=== PATIENT | female | born 1990 | race Caucasian/White ===

== ENCOUNTER 2020-12-26 12:44 | Emergency (ER) | payer OTHER, SELFPAY ==
--- NOTE | ~2020-12-26 | CT_ITS ---
EXAMINATION: CT SOFT TISSUE NECK WITH CONTRAST CLINICAL INFORMATION: Evaluate right peritonsillar abscess. COMPARISON: There are no prior studies available for comparison. TECHNIQUE: Following the intravenous administration of 50 mL of Omnipaque 350 intravenous contrast, helical imaging was performed in the axial plane with generation of coronal and sagittal reformatted images. This CT examination was performed using dose optimization techniques as appropriate, variously including the following: *Automated exposure control *Adjustment of mA and/or kV according to patient size (this includes techniques or standardized protocols for targeted exams where dose is matched to indication/reason for exam; i.e. extremities or head) *Use of iterative reconstruction technique DLP: 469 mGy-cm FINDINGS: There is an area of irregular density in the right palatine tonsil which measures 1.7 x 1.4 cm, which may be consistent with a developing tonsillar abscess. There is fullness of the bilateral palatine tonsils, and there is mild distortion of the oropharyngeal airway on the right. There are multilevel moderately prominent cervical lymph nodes bilaterally. The largest is in the left level IIA/IIB region and measures 2 cm. The parotid glands are homogeneous in attenuation. The submandibular glands are normal. The laryngeal structures are normal. The parapharyngeal fat is preserved. There is good opacification of the cervical vascular structures. No extra mucosal soft tissue mass or fluid collection is seen. The left lobe of the thyroid gland is slightly asymmetrically more prominent toward the lower pole compared to the right, but no discrete nodule is demonstrated. The superior mediastinum is unremarkable. The lung apices are clear. There are retention cysts in the right maxillary sinus. The temporomandibular joints are normal. The patient is edentulous in the maxilla. There are no acute osseous findings. The cervical spine appears normal. The imaged portions of the brain parenchyma are unremarkable. CT/CT soft tissue neck w con IMPRESSION: 1. There is fullness of the bilateral palatine tonsils, and there appears to be an evolving abscess on the right. There is mild distortion of the airway on the right in this region. 2. There are mildly prominent cervical lymph nodes, the largest in the left level IIA/IIB region. 3. The lower pole of the left lobe of thyroid gland is slightly prominent, but no discrete nodule is demonstrated. This could be further evaluated with nonemergent thyroid ultrasound.
[2020-12-26 14:33] VITALS: BP 135/86; PULSE 82; RESP 18; TEMP 36.6; O2SAT 99; BMI 32.5
--- NOTE | 2020-12-26 14:51 | ED.URI ---
HPI - URI/Sore Throat General Chief Complaint: General Medical Stated Complaint: COVID+/abscess in throat? Time Seen by Provider: 12/26/20 14:24 Source: patient Mode of arrival: ambulatory Limitations: no limitations History of Present Illness MD elicited complaint: sore throat Pertinent past history: other (dx with COVID on Saturday, negative strep on Saturday has been on augmentin pain worsened since then) Onset (ago): day(s) (since this Saturday) Consistency: progressively worsening Severity: moderate Able to tolerate fluids by mouth: Yes Exacerbating factors: swallowing Relieving factors: nothing Context: sick contacts Associated symptoms: chills, voice changes and sore throat Treatments prior to arrival: ibuprofen and antibiotics (augmentin since saturday) Related Data Allergies Allergy/AdvReac Type Severity Reaction Status Date / Time acetaminophen [From Vicodin] Allergy Intermediate Nausea Verified 12/26/20 15:21 hydrocodone [From Vicodin] Allergy Intermediate Nausea Verified 12/26/20 15:21 latex [LATEX] Allergy Intermediate HIVES Verified 12/26/20 15:21 diphenhydramine AdvReac Intermediate Agitated Verified 12/26/20 15:21 [From Benadryl] metoclopramide [From Reglan] AdvReac Intermediate Anxiety Verified 12/26/20 15:21 Review of Systems Review of Systems: Constitutional : No Weight loss, No Fever, pos Chills, No Fatigue, No Malaise ENT/Mouth : pos sore throat, No Rhinorrhea Eyes: No Eye Pain, No Swelling, No Redness Cardiovascular : No Chest Pain, No SOB, No Dyspnea on Exertion, No Orthopnea, No Edema, No Palpitations Respiratory : No Cough, No Sputum, No Wheezing Gastrointestinal : No Nausea, No Vomiting, No Diarrhea, No Constipation, No abdominal Pain, No Hematochezia, No Melena Genitourinary : No Dysuria, No Urinary Frequency, No Hematuria, Musculoskeletal : No joint pain, No Myalgias, No Joint Swelling Skin : No Skin Lesions, No rash Neuro : No Weakness, No Numbness, No Dizziness, No Headache Psych : No Anxiety/Panic, No Depression Heme/Lymph: No Bruising, No Bleeding,pos Lymphadenopathy Endocrine : No Polyuria, No Polydipsia All other systems reviewed and are negative PMFSH Past Medical History Attestation statement: The following information was validated with the patient. Medical History Anxiety Diverticulosis Fibromyalgia GERD (gastroesophageal reflux disease) IBS (irritable bowel syndrome) Migraine PCOS (polycystic ovarian syndrome) Social History Social History (Updated 12/26/20 @ 15:10 by Shira Conrad DO) Alcohol intake: current Alcohol intake frequency: holidays/special occasions only Patient Tobacco Use Status: Current everyday Tobacco user Use of substances other than those prescribed or required for medical reasons: No Advance Directives: No Advance Directives Information Provided: No Physical Exam Vital Signs: Vital Signs: Last Vital Signs Temp 98 F 12/26/20 14:33 Pulse 82 12/26/20 14:33 Resp 18 12/26/20 14:33 BP 135/86 12/26/20 14:33 Pulse Ox 99 12/26/20 14:33 Body Mass Index 32.5 Appearance: Alert. Oriented X3. No acute distress. Eyes: Pupils equal, round and reactive to light. ENT: Pharynx mild generalized erythema, no mass seen on R tonsil but stones seen - uvula is midline, no sig swelling Neck: tender R anterior cervical LAD moderate in size CVS: Normal heart rate and rhythm. Pulses normal. Respiratory: No respiratory distress. Breath sounds normal. Abdomen: Soft and nontender. Skin: Skin warm and dry. Normal skin color. Normal skin turgor. Extremities: No lower extremity edema. No calf ttp Neuro: Oriented X 3. No motor deficit. No sensory deficit. 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 Dispo per results and findings. Lab Data Result diagrams: 12/26/20 15:15 12/26/20 15:15 Labs: Lab Results 12/26/20 12/26/20 12/26/20 Range/Units 15:15 15:15 15:15 WBC 4.9 (4.8-10.8) X10*3/uL RBC 4.42 (4.20-5.50) X10*6/uL Hgb 12.9 (12.0-16.0) g/dl Hct 38.7 (37-47) % MCV 87.6 (80-98) fL MCH 29.2 (27.0-33.0) pg MCHC 33.3 (31.0-35.0) g/dl RDW 12.4 (11.0-16.0) % Plt Count 171 (160-400) X10*3/uL MPV 11.6 (9.4-12.3) fL Immature Gran % (Auto) 0.2 (0.0-0.4) % Neut % (Auto) 71.5 (45-73) % Lymph % (Auto) 20.8 (20-40) % [place] % (Auto) 5.7 (2-11) % Eos % (Auto) 1.6 (0-4) % Baso % (Auto) 0.2 (0-2) % Lymph # (Auto) 1.0 L (1.2-4.9) X10*3/uL [place] # (Auto) 0.3 (0.1-1.2) X10*3/uL Eos # (Auto) 0.1 (0.0-0.4) X10*3/uL Baso # (Auto) 0.0 (0.0-0.2) X10*3/uL Abs Immat Gran (auto) 0.01 (0.00-0.03) X10*3/uL Absolute Neuts (auto) 3.5 (2.0-8.3) X10*3/uL Absolute Nucleated RBC 0.000 (0.0-0.012) X10*3/uL Nucleated RBC % (auto) 0.0 (0.0-0.2) /100WBC Sodium 141 (135-145) mmol/L Potassium 4.1 (3.3-5.1) mmol/L Chloride 111 H (96-108) mmol/L Carbon Dioxide 23 (22-29) mmol/L Anion Gap 11 L (12-20) BUN 10 (9-16) mg/dL Creatinine 0.65 (0.5-1.4) mg/dL Estim Creat Clear Calc 122.2 Estimated GFR > 60 Random Glucose 84 (60-115) mg/dL Lactic Acid 1.5 (0.5-2.0) mmol/L Calcium 8.6 (8.4-10.2) mg/dL S. pyogenes GrpA ALANNA (Negative) 12/26/20 Range/Units 15:15 WBC (4.8-10.8) X10*3/uL RBC (4.20-5.50) X10*6/uL Hgb (12.0-16.0) g/dl Hct (37-47) % MCV (80-98) fL MCH (27.0-33.0) pg MCHC (31.0-35.0) g/dl RDW (11.0-16.0) % Plt Count (160-400) X10*3/uL MPV (9.4-12.3) fL Immature Gran % (Auto) (0.0-0.4) % Neut % (Auto) (45-73) % Lymph % (Auto) (20-40) % [place] % (Auto) (2-11) % Eos % (Auto) (0-4) % Baso % (Auto) (0-2) % Lymph # (Auto) (1.2-4.9) X10*3/uL [place] # (Auto) (0.1-1.2) X10*3/uL Eos # (Auto) (0.0-0.4) X10*3/uL Baso # (Auto) (0.0-0.2) X10*3/uL Abs Immat Gran (auto) (0.00-0.03) X10*3/uL Absolute Neuts (auto) (2.0-8.3) X10*3/uL Absolute Nucleated RBC (0.0-0.012) X10*3/uL Nucleated RBC % (auto) (0.0-0.2) /100WBC Sodium (135-145) mmol/L Potassium (3.3-5.1) mmol/L Chloride (96-108) mmol/L Carbon Dioxide (22-29) mmol/L Anion Gap (12-20) BUN (9-16) mg/dL Creatinine (0.5-1.4) mg/dL Estim Creat Clear Calc Estimated GFR Random Glucose (60-115) mg/dL Lactic Acid (0.5-2.0) mmol/L Calcium (8.4-10.2) mg/dL S. pyogenes GrpA ALANNA Positive A (Negative) Discharge Plan Discharge Clinical Impression: Acute streptococcal pharyngitis Instructions: Pharyngitis (ED), Strep Throat (ED)
[2020-12-26 15:28] LABS: MANUAL DIFF FLAG NO
[2020-12-26] MEDS: cefTRIAXone sodium 1 GM in 0.9 % Sodium Chloride 50 ML IV (15:31)
[2020-12-26] MEDS: dexAMETHasone sod phosphate 4 MG/ML VIAL 6 MG IVPUSH (15:31)
[2020-12-26] MEDS: ondansetron HCL 4 MG/2 ML VIAL IVPUSH (15:31)
[2020-12-26] MEDS: Morphine Sulfate 4 MG/ML CARTRIDGE IVPUSH (15:32)
[2020-12-26] MEDS: 0.9 % Sodium Chloride 1,000 ML 999 ML IVCONT (15:32)
[2020-12-26 15:35] LABS: Basophils Percent Auto 0.2 % (0-2); Eosinophils Absolute Auto 0.1 X10*3/uL (0.0-0.4); Eosinophils Percent Auto 1.6 % (0-4); Hematocrit 38.7 % (37-47); Hemoglobin 12.9 g/dl (12.0-16.0); Imm Gran Abs Auto 0.01 X10*3/uL (0.00-0.03); Imm Gran Pct Auto 0.2 % (0.0-0.4); Lymphocytes Percent Auto 20.8 % (20-40); Mean Corpuscular HGB Conc 33.3 g/dl (31.0-35.0); Mean Corpuscular Hemoglobin 29.2 pg (27.0-33.0); Mean Corpuscular Volume 87.6 fL (80-98); Mean Platelet Volume 11.6 fL (9.4-12.3); Monocytes Absolute Auto 0.3 X10*3/uL (0.1-1.2); Monocytes Percent Auto 5.7 % (2-11); Neutrophils Absolute Auto 3.5 X10*3/uL (2.0-8.3); Neutrophils Percent Auto 71.5 % (45-73); Platelet Count 171 X10*3/uL (160-400); Red Blood Count 4.42 X10*6/uL (4.20-5.50); Red Cell Distribution Width 12.4 % (11.0-16.0); White Blood Count 4.9 X10*3/uL (4.8-10.8)
--- NOTE | 2020-12-26 15:36 | PC.NURSE ---
iv inserted, labs drawn, pt medicated per order, will continue to monitor
[2020-12-26 15:39] LABS: IDNOW Serial# 9DD0AD1C; Strep A Nucleic Acid Positive (Negative)
[2020-12-26 15:41] LABS: Lactic Acid 1.5 mmol/L (0.5-2.0)
[2020-12-26 15:42] LABS: Anion Gap 11 (12-20); Blood Urea Nitrogen 10 mg/dL (9-16); Calcium 8.6 mg/dL (8.4-10.2); Carbon Dioxide 23 mmol/L (22-29); Chloride 111 mmol/L (96-108); Creatinine Clr Calc Pharmacy 122.2; Estimated Glomerular Filt Rate > 60; Glucose Random 84 mg/dL (60-115); Potassium 4.1 mmol/L (3.3-5.1); Sodium 141 mmol/L (135-145)
[2020-12-26 17:15] VITALS: BP 124/86; PULSE 63; RESP 18; TEMP 36.8; O2SAT 99
--- NOTE | 2020-12-26 17:17 | PC.NURSE ---
patient a&ox3, vss, urine obtained, pt c/o 09/01 throat pain, will continue to monitor.
[2020-12-26 17:28] LABS: Appearance Urine CLEAR; Color Urine YELLOW; Glucose Urine UA NEG (NEG); Leukocyte Esterase Urine 1+ (NEG); Nitrite Urine NEG (NEG); UACC Culture Trigger YES; Urine Blood NEG (NEG); Urine Ketones NEG (NEG); Urine Protein NEG (NEG-TRACE)
[2020-12-26 17:31] LABS: UPreg QC Valid YES; Urine Pregnancy NEGATIVE (NEGATIVE)
[2020-12-26 17:46] LABS: Bacteria Urine TRACE /LPF; RBC Urine 0-2 /HPF (0); Squamous Epithelial Cell Urine TRACE /LPF
[2020-12-26] MEDS: iohexoL 350 MG/ML 100 ML INFUS..BTL IV (17:48)
[2020-12-26] MEDS: Lidocaine HCl Viscous 2 % 15 ML SOLUTION MUCOUS MEM (18:04)
--- NOTE | 2020-12-26 18:04 | PC.NURSE ---
patient medicated for pain
[2020-12-26 19:31] VITALS: BP 134/89; PULSE 83; RESP 16; O2SAT 98
--- NOTE | 2020-12-26 19:40 | PC.NURSE ---
pt requested medication for pain, MLP ordered 650 Tylenol when this nurse walked in to administer medication pt decided she wanted to hold off on Tylenol in case she ends up going home tonight and wants to take an OTC/Tylenol-containing cold medicine at home EMBEDDER (Rochelle Cormier, EMBEDDER) at bedside and aware
== END 2020-12-26 20:12 | disposition home or self-care (01) ==
PROVIDERS: Emergency Provider Emergency Medicine
DX: J02.0 Streptococcal pharyngitis (principal); M54.2 Cervicalgia; Z20.822 Contact with and (suspected) exposure to COVID-19; Z79.899 Other long term (current) drug therapy; F17.200 Nicotine dependence, unspecified, uncomplicated; Z71.6 Tobacco abuse counseling
CPT/HCPCS: 36415; 70491; 80048; 81001; 81025; 83605; 85025; 87040; 87086; 87651; 96361; 96374; 96375; 99284; J0696; J1100; J2270; J2405; Q9967

== ENCOUNTER 2022-04-17 08:30 | Emergency (ER) | payer OTHER, SELFPAY ==
--- NOTE | ~2022-04-17 | XR_ITS ---
EXAMINATION: XR WRIST, LEFT CLINICAL INFORMATION: Status post fall COMPARISON: None TECHNIQUE: 4 views of the left wrist FINDINGS: Mildly displaced transverse oriented fracture involving the distal radial metadiaphysis. Joint spaces and alignment are otherwise maintained. Soft tissues are unremarkable. XR/XR wrist LT w scaphoid IMPRESSION: Mildly displaced transverse oriented fracture involving the distal radial metadiaphysis.
[2022-04-17 08:36] VITALS: BMI 31.9
[2022-04-17 08:37] VITALS: BP 138/96; PULSE 103; RESP 16; TEMP 36.8; O2SAT 99
--- NOTE | 2022-04-17 08:41 | ED.EXTPRO ---
HPI - Extremity Problem General Chief complaint: Extremity Injury, Upper Stated complaint: L wrist inj Time Seen by Provider: 04/17/22 08:33 Source: patient Mode of arrival: ambulatory Limitations: no limitations History of Present Illness HPI Narrative: Patient is a 31-year-old female who presents emergency department for evaluation of traumatic left wrist pain. She states prior to arrival she slipped on ice while trying to catch her son from falling, she subsequently fell onto her outstretched hand. Pain is localized to the radial aspect, with mild localized swelling. Pain is radiating into the distal forearm. Denies any prior injury or surgery to this wrist. Related Data Previous Rx's Medication Instructions Recorded clindamycin HCl 300 mg capsule 300 mg PO Q8H 10 days #30 caps 12/26/20 ibuprofen 600 mg tablet 600 mg PO Q6H PRN pain #90 tabs 12/26/20 oxycodone 5 mg tablet 5 mg PO Q8H PRN pain #10 tabs 12/26/20 oxycodone 5 mg tablet 5 mg PO Q6H PRN pain #14 tabs 04/17/22 Allergies Allergy/AdvReac Type Severity Reaction Status Date / Time acetaminophen [From Vicodin] Allergy Intermediate Nausea Verified 12/26/20 15:21 hydrocodone [From Vicodin] Allergy Intermediate Nausea Verified 12/26/20 15:21 latex [LATEX] Allergy Intermediate HIVES Verified 12/26/20 15:21 diphenhydramine AdvReac Intermediate Agitated Verified 12/26/20 15:21 [From Benadryl] metoclopramide [From Reglan] AdvReac Intermediate Anxiety Verified 12/26/20 15:21 Review of Systems Review of Systems: Musculoskeletal: Positive wrist pain as noted in HPI Yes all other systems are reviewed and are negative [facility] Past Medical History Attestation statement: The following information was validated with the patient. Source: old records reviewed Medical History Anxiety Diverticulosis Fibromyalgia GERD (gastroesophageal reflux disease) IBS (irritable bowel syndrome) Migraine PCOS (polycystic ovarian syndrome) Social History Social History (Updated 12/26/20 @ 15:10 by Lashon Conrad DO) Alcohol intake: current Alcohol intake frequency: holidays/special occasions only Patient Tobacco Use Status: Current everyday Tobacco user Advance Directives: No Advance Directives Information Provided: Yes Physical Exam Vital Signs: Vital Signs: Last Vital Signs Temp 98.2 F 04/17/22 08:37 Pulse 103 H 04/17/22 08:37 Resp 16 04/17/22 08:37 BP 138/96 H 04/17/22 08:37 Pulse Ox 99 04/17/22 08:37 O2 Del Method 04/17/22 08:37 BMI result Body Mass Index 31.9 Appearance: Alert.?Oriented to person, place and time. No acute distress.?Normal affect. Eyes: Pupils equal, round and reactive to light.? ENT: Pharynx normal.?? Neck: Normal inspection.? Neck supple.?? CVS: Heart sounds normal. Normal heart rate and rhythm.? Pulses normal.?? Respiratory: No respiratory distress.? Lung sounds clear to auscultation bilaterally?? Abdomen: Soft and non-tender. Skin: Skin warm and dry.? Normal skin color.? Extremities: No lower extremity edema.? Left elbow and digits with full range of motion. Left wrist with localized swelling, point tenderness over radial aspect of wrist and snuffbox tenderness. 2+ radial pulse bilaterally. Neuro: Moves all extremities spontaneously. Sensation intact bilaterally. Ambulates with normal steady gait. Course Reevaluation(s) Reevaluation #1: XR imaging revealing mildly displaced transverse fracture of the distal radius. Discussed these findings with patient. Patient placed in a sugar-tong splint, remained neurovascularly intact distally after placement. Advised rest, ice, elevation, acetaminophen/ibuprofen for pain, and prescription for oxycodone sent to patient's pharmacy. Advised outpatient follow-up with Orthopedics, provided with contact information. Discussed worrisome signs and symptoms of warrant re-evaluation in the emergency department. All questions answered. Patient stable for discharge. Time: 10:04 Medications Administered Discontinued Medications Generic Name Dose Route Start Last Admin Trade Name Freq PRN Reason Stop Dose Admin Acetaminophen 975 mg 04/17/22 08:48 04/17/22 08:53 Acetaminophen 325 Mg Tablet PO 04/17/22 08:49 975 mg ONCE ONE Administration Medical Decision Making Medical Decision Making [facility] Narrative: Patient is a 31-year-old female who presents to the emergency department for evaluation of traumatic left wrist pain after mechanical fall. Extremities neurovascularly intact distally, proximal joint and distal phalanges are without impaired range of motion. Will obtain XR to evaluate for fracture, dislocation verses sprain. Acetaminophen for pain. No head strike or loss of consciousness, no focal neurological deficits. Differential Diagnosis Differential Diagnoses: The differential diagnosis associated with the presentation includes Independent Interpretation I performed an independent interpretation of an: Plain X-Ray (Have personally interpreted XR imaging of the left wrist and agree with radiologist impression.) Radiology Impression Discussion of test interpretation with radiology: I have reviewed the radiologist's reading. Radiologist Impression: XR/XR wrist LT w scaphoid IMPRESSION: Mildly displaced transverse oriented fracture involving the distal radial metadiaphysis. ? Prescription Management I considered prescription management with: Pain Medication Discharge Plan Discharge Clinical Impression: Distal radius fracture, left Patient Disposition: Home, Self-Care Instructions: Arm Fracture in Adults (ED), Wrist Fracture in Adults (ED) Additional Instructions: Splint will need to be in place until evaluated by Orthopedics. The splint cannot get wet. Apply ice for 10-15 minutes 4-6 times daily, elevate the leg above the level of the chest on pillows. You can take ibuprofen 200 mg, 3 tablets (600mg) every 6-8 hours as needed for pain, in addition to Tylenol 500 mg, 2 tablets (1,000mg) every 4-6 hours as needed for pain, but not to exceed 3 doses daily (3,000mg).? You have also been given a prescription for oxycodone to use as needed for severe pain unrelieved by acetaminophen/ibuprofen. This is a narcotic medication, it may make you drowsy, it can be addictive. You should not drive, drink alcohol, work, or operate machinery while taking this medication. Contact the orthopedic office to arrange for outpatient follow-up. Return back to emergency department any new or worsening symptoms or concerns. Prescriptions: New oxycodone 5 mg tablet 5 mg PO Q6H PRN (Reason: pain) Qty: 14 0RF Rx Instructions: Partial Fill upon patient request. No Action clindamycin HCl 300 mg capsule 300 mg PO Q8H 10 Days Qty: 30 0RF oxycodone 5 mg tablet 5 mg PO Q8H PRN (Reason: pain) Qty: 10 0RF Rx Instructions: Tonsillar abscess ibuprofen 600 mg tablet 600 mg PO Q6H PRN (Reason: pain) Qty: 90 0RF Referrals: Berenice Zambrano PA-C [Physician [employer] Machine Repairer] - Stand Alone Forms: Work/School Release Interventions: ED Discharge Assessment Last Done: 04/17/22 10:21 Discharge Date/Time: 04/17/22 10:39
--- NOTE | 2022-04-17 08:42 | PC.NURSE ---
31 y/o F pw pain to R wrist after slipping and falling on ice. pt is aox3, VSS. no other complaints. plan for xray
[2022-04-17] MEDS: Acetaminophen 325 MG TABLET 975 MG PO (08:53)
== END 2022-04-17 10:39 | disposition home or self-care (01) ==
PROVIDERS: Emergency Provider Emergency Medicine
DX: S52.502A Unspecified fracture of the lower end of left radius, initial encounter for closed fracture (principal); W00.0XXA Fall on same level due to ice and snow, initial encounter; Y93.9 Activity, unspecified; Y92.9 Unspecified place or not applicable; Y99.9 Unspecified external cause status; Z79.899 Other long term (current) drug therapy; F17.200 Nicotine dependence, unspecified, uncomplicated; Z71.6 Tobacco abuse counseling
CPT/HCPCS: 29105; 73110; 99284

== ENCOUNTER 2022-04-20 16:32 | Outpatient (REF) | payer OTHER, SELFPAY ==
--- NOTE | ~2022-04-20 | XR_ITS ---
EXAMINATION: XR WRIST, LEFT CLINICAL INFORMATION: Pain COMPARISON: 04/17/2022 TECHNIQUE: PA, lateral, and oblique views of the left wrist. FINDINGS: Redemonstration of unhealed distal radial fracture. No significant displacement, there is some bone remodeling. Intercarpal and carpometacarpal joints are intact. XR/XR wrist LT min 3V IMPRESSION: * Unhealed stable distal radial fracture. * There is some bone remodeling.
== END 2022-04-20 16:33 | disposition home or self-care (01) ==
LOC: HO.HOSX 16:32
PROVIDERS: Visit Provider Physician Assistant
DX: S52.502A Unspecified fracture of the lower end of left radius, initial encounter for closed fracture (principal)
CPT/HCPCS: 73110; 99202

== ENCOUNTER 2022-04-24 08:09 | Outpatient (REF) | payer SELFPAY ==
--- NOTE | ~2022-04-24 | XR_ITS ---
EXAMINATION: XR WRIST, LEFT CLINICAL INFORMATION: Pain. COMPARISON: 04/20/2022 and 04/17/2022. TECHNIQUE: 4 views of the left wrist. FINDINGS: There is no change in alignment of the distal left radial fracture which is not intra-articular at the radiocarpal joint and which is at neutral to slight volar angulation of the radiocarpal joint. There is some sclerosis about the fracture site but without callus formation appreciated. XR/XR wrist LT w scaphoid IMPRESSION: Stable alignment of healing distal left radial fracture.
== END 2022-04-24 08:10 | disposition home or self-care (01) ==
LOC: HO.HOSX 08:09
PROVIDERS: Visit Provider Physician Assistant
DX: S52.502A Unspecified fracture of the lower end of left radius, initial encounter for closed fracture (principal)
CPT/HCPCS: 29085; 73110; 99212

== ENCOUNTER 2022-05-01 08:38 | Emergency (ER) | payer OTHER, SELFPAY ==
[2022-05-01 08:41] VITALS: BP 139/85; PULSE 100; RESP 18; TEMP 35.8; O2SAT 100; BMI 30.2
--- NOTE | 2022-05-01 08:53 | ED.GENADULT ---
HPI - General Adult General Chief complaint: General Medical Stated complaint: migraine Time Seen by Provider: 05/01/22 08:47 Source: patient Mode of arrival: ambulatory Limitations: no limitations History of Present Illness HPI narrative: Patient is a 32 year old assigned female at with a history of migraine and a broken left wrist presenting to the emergency department today with nausea and a migraine. Patient states that this feels like her usual migraines however, she ran out of her migraine medication and her GERD medication. Patient denies any dizziness, lightheadedness, abdominal pain, vomiting, fever, chills, blurry vision, double vision, loss of vision, chest pain, difficulty breathing, shortness of breath, back pain, night sweats, pain with urination, increased urinary frequency, increased urinary urgency, blood in her urine or stool, syncope or a near syncopal episode, recent trauma or falls, bowel incontinence, bladder incontinence, bowel retention, bladder retention, or any other complaints at this time. Onset (ago): day(s) Radiation: non-radiation Severity: mild Severity scale (1-10): 2 Quality: dull Pain Consistency: constant Relieving factors: none Exacerbating factors: none Associated symptoms: nausea/vomiting Treatments prior to arrival: none Related Data Previous Rx's Medication Instructions Recorded clindamycin HCl 300 mg capsule 300 mg PO Q8H 10 days #30 caps 12/26/20 oxycodone 5 mg tablet 5 mg PO Q8H PRN pain #10 tabs 12/26/20 acetaminophen 500 mg tablet 500 mg PO Q4-6H PRN fever or pain 04/24/22 (Tylenol Extra Strength) 30 days #168 tabs oxycodone 5 mg tablet 5 mg PO Q12H PRN pain 2 days #4 04/24/22 tabs pantoprazole 40 mg tablet,delayed 40 mg PO DAILY #30 tabs 05/01/22 release (Protonix) rizatriptan 5 mg disintegrating See Rx Instructions PO .COMPLEX 05/01/22 tablet #30 tabs Allergies Allergy/AdvReac Type Severity Reaction Status Date / Time hydrocodone [From Vicodin] Allergy Intermediate Nausea Verified 04/24/22 10:37 latex [LATEX] Allergy Intermediate HIVES Verified 04/24/22 10:37 diphenhydramine AdvReac Intermediate Agitated Verified 04/24/22 10:37 [From Benadryl] metoclopramide [From Reglan] AdvReac Intermediate Anxiety Verified 04/24/22 10:37 Review of Systems Constitutional: Constitutional: Reports no additional constitutional complaints, Denies chills, Denies fever(s), Reports headache(s) and Denies night sweats Eyes: Eyes: Reports no additional eye complaints, Denies blurry vision, Denies change in vision, Denies diplopia, Denies eye discharge, Denies loss of vision and Denies eye pain ENT: Denies dizziness and Reports headache(s) Cardiovascular: Cardiovascular: Reports no additional cardiovascular complaints, Denies chest pain, Denies lightheadedness, Denies Loss of Consciousness and Denies dyspnea Respiratory: Respiratory: Reports no additional respiratory complaints and Denies dyspnea Gastrointestinal: Gastrointestinal: Reports no additional gastrointestinal complaints, Denies abdominal pain, Denies melena, Denies hematochezia, Denies change in bowel habits, Denies change in stool character and Reports nausea Genitourinary: Genitourinary: Denies hematuria, Denies urinary frequency, Denies dysuria, Denies urinary incontinence, Denies urinary hesitancy and Denies urinary urgency Musculoskeletal: Musculoskeletal: Reports no additional musculoskeletal complaints, Denies numbness and Denies tingling Neurologic: Denies dizziness, Reports headache(s), Denies loss of vision, Denies numbness and Denies tingling Psychiatric: Psychiatric: Reports no additional psychiatric complaints Endocrine: Endocrine: Reports no additional endocrine complaints Hematologic/Lymphatic: Hematologic/Lymphatic: Reports no additional hematologic/lymphatic complaints Allergic/Immunologic: Allergic/Immunologic: Reports no additional allergic/immunologic complaints PMFSH Past Medical History Attestation statement: The following information was validated with the patient. Source: old records reviewed and nursing notes reviewed Medical History Anxiety Diverticulosis Fibromyalgia GERD (gastroesophageal reflux disease) IBS (irritable bowel syndrome) Migraine PCOS (polycystic ovarian syndrome) Social History Social History Alcohol intake: current Alcohol intake frequency: holidays/special occasions only Patient Tobacco Use Status: Current everyday Tobacco user Advance Directives: No Patient : No Physical Exam ED Vital Signs: Vital Signs - 24 hr 05/01/22 08:41 Temperature 96.4 F L Pulse Rate 100 Respiratory Rate 18 Blood Pressure 139/85 Pulse Oximetry 100 Oxygen Delivery Method Room Air BMI result Body Mass Index 30.2 Const General: cooperative, no acute distress, alert and awake Nutritional Appearance: well nourished Orientation/consciousness: patient oriented x3 Limitations: no limitations HENMT Head: Yes normal to inspection and Yes atraumatic Ears: hearing grossly normal bilaterally and external ears normal General nose exam: Normal external nose present, no nasal discharge noted and no epistaxis Face and sinus: Yes normal facial exam, No abrasion and No laceration Mouth: Normal oral and palatal mucosa present, no drooling and no muffled voice Eyes General: appearance normal, both eyes and all related structures Periorbital: periorbital findings normal Eyelids: Yes eyelids normal Conjunctivae: conjunctivae normal Pupils: Equal, round and reactive pupils present EOM: EOMs intact bilaterally Neck Neck: Yes normal visual inspection, Yes full ROM and Yes no lymphadenopathy Chest Chest palpation & inspection: normal inspection of the chest Resp Effort & Inspection: normal respiratory effort and able to speak in complete sentences Auscultation: clear to auscultation bilaterally Cardio Rate: regular rate Rhythm: regular rhythm GI Inspection: Yes normal to inspection Palpation (GI): Soft to palpation, not firm, nontender, no guarding and not rigid Neuro General: patient oriented x3 and moves all extremities Cranial nerves: Yes Equal, round and reactive pupils present Cognition (Neuro): normal cognition Motor exam (neuro): 5/5 motor strength present throughout Sensory Exam: Normal double simultaneous stimulation for sensation Coordination: [id number] test normal Extrem General: Yes normal to inspection, Yes full ROM and Yes capillary refill normal Psych Appearance: grossly normal Mental Status: mental status grossly normal Affect: normal affect Attitude: cooperative Thought process: Normal thought process present Thought content: Normal thought content present Insight: Good insight present (Psych) Medications Administered Discontinued Medications Generic Name Dose Route Start Last Admin Trade Name Freq PRN Reason Stop Dose Admin Sodium Chloride 1,000 mls @ 999 mls/hr 05/01/22 09:30 05/01/22 09:43 Ns IV 05/01/22 10:30 999 mls/hr .Q1H1M MARCUS Administration Ondansetron HCl 4 mg 05/01/22 09:16 05/01/22 09:43 Ondansetron Hcl 4 Mg/2 Ml Vial IVPUSH 05/01/22 09:17 4 mg ONCE ONE Administration Pantoprazole Sodium 40 mg 05/01/22 09:16 05/01/22 09:43 Pantoprazole Sodium 40 Mg/10 Ml Vial IVPUSH 05/01/22 09:17 40 mg ONCE ONE Administration Sumatriptan Succinate 25 mg 05/01/22 09:16 05/01/22 10:08 Sumatriptan Succinate 25 Mg Tablet PO 05/01/22 09:17 25 mg ONCE ONE Administration Medical Decision Making Medical Decision Making [facility] Narrative: Patient is a 32 year old assigned female at with a history of a broken left wrist and migraines presenting to the emergency department today with a migraine and nausea. Patient's physical exam was unremarkable. Patient's blood work was unremarkable. I explained my physical exam findings as well as all test results to the patient. I answered all questions asked by the patient. Patient received PO Imitrex, IV fluids, and IV protonix which she stated helped her symptoms significantly. I stressed the importance of the patient taking her medication as prescribed. I stressed the importance of the patient following up with her primary care provider and a neurologist. I stressed the importance of the patient returning to the emergency department immediately if her symptoms were to worsen or if she were to develop any dizziness, shortness of breath, difficulty breathing, chest pain, blurry vision, loss of vision, nausea, vomiting, abdominal pain, fever, chills, back pain, or any other complaints. Patient verbalized agreement and understanding with this treatment plan and discharge. Differential Diagnosis Differential Diagnoses: The differential diagnosis associated with the presentation includes migraine, nausea Lab Data [facility] Lab Attestation statement: I reviewed the patient's lab results. 05/01/22 09:41 05/01/22 09:41 Labs: Lab Results 05/01/22 05/01/22 Range/Units 09:41 09:41 WBC 5.1 (4.8-10.8) X10*3/uL RBC 4.51 (4.20-5.50) X10*6/uL Hgb 12.9 (12.0-16.0) g/dl Hct 38.9 (37.0-47.0) % MCV 86.3 (80.0-98.0) fL MCH 28.6 (27.0-33.0) pg MCHC 33.2 (31.0-35.0) g/dl RDW 12.8 (11.0-16.0) % Plt Count 185 (160-400) X10*3/uL MPV 10.9 (9.4-12.3) fL Immature Gran % (Auto) 0.2 (0.0-0.4) % Neut % (Auto) 71.7 (45-73) % Lymph % (Auto) 17.2 L (20-40) % [place] % (Auto) 6.7 (2-11) % Eos % (Auto) 3.4 (0-4) % Baso % (Auto) 0.8 (0-2) % Lymph # (Auto) 0.9 L (1.2-4.9) X10*3/uL [place] # (Auto) 0.3 (0.1-1.2) X10*3/uL Eos # (Auto) 0.2 (0.0-0.4) X10*3/uL Baso # (Auto) 0.0 (0.0-0.2) X10*3/uL Abs Immat Gran (auto) 0.01 (0.00-0.03) X10*3/uL Absolute Neuts (auto) 3.6 (2.0-8.3) x10*3/uL Absolute Nucleated RBC 0.000 (0.0-0.012) X10*3/uL Nucleated RBC % (auto) 0.0 (0.0-0.2) /100WBC Sodium 138 (135-145) mmol/L Potassium 3.9 (3.3-5.1) mmol/L Chloride 108 (96-108) mmol/L Carbon Dioxide 18 L (22-29) mmol/L Anion Gap 16 (12-20) BUN 12 (9-16) mg/dL Creatinine 0.65 (0.5-1.4) mg/dL Estim Creat Clear Calc 115.4 Estimated GFR > 60 Random Glucose 89 (60-115) mg/dL Calcium 9.2 D (8.4-10.2) mg/dL Magnesium 1.7 (1.6-2.6) mg/dL Total Bilirubin 1.0 (0.0-1.0) mg/dL AST 15 (5-31) U/L ALT 17 (0-31) U/L Alkaline Phosphatase 57 (39-117) U/L Total Protein 6.8 (6.5-8.0) g/dL Albumin 4.0 (3.5-5.0) g/dL Discharge Plan Discharge Clinical Impression: Migraine Patient Disposition: Home, Self-Care Instructions: Migraine Headache (ED) Additional Instructions: Follow up with a primary care provider and a neurologist. Return to the emergency department immediately if your symptoms worsen or if you develop any dizziness, shortness of breath, difficulty breathing, chest pain, blurry vision, loss of vision, nausea, vomiting, abdominal pain, fever, chills, back pain, or any other complaints. Prescriptions: New pantoprazole [Protonix] 40 mg tablet,delayed release (DR/EC) 40 mg PO DAILY Qty: 30 0RF rizatriptan 5 mg tablet,disintegrating See Rx Instructions .ROUTE .COMPLEX Qty: 30 0RF Rx Instructions: take 1 tablet at onset of headache; if no relief, may repeat 1 tablet after at least 2 hrs No Action clindamycin HCl 300 mg capsule 300 mg PO Q8H 10 Days Qty: 30 0RF oxycodone 5 mg tablet 5 mg PO Q8H PRN (Reason: pain) Qty: 10 0RF Rx Instructions: Tonsillar abscess oxycodone 5 mg tablet 5 mg PO Q12H PRN (Reason: pain) 2 Days Qty: 4 0RF Rx Instructions: Partial Fill upon patient request. acetaminophen [Tylenol Extra Strength] 500 mg tablet 500 mg PO Q4-6H PRN (Reason: fever or pain) 30 Days Qty: 168 0RF Referrals: [facility] [place] Family Medicine [Provider Group] (Call to establish and follow up with a primary care provider.) [facility] [place] Primary Care, [place] [Provider Group] (Call to establish and follow up with a primary care provider.) [facility] [place] [facility] [Provider Group] (Call to establish and follow up with a primary care provider.) [facility] Neuro/Sleep [Provider Group] (Call to establish and follow up with a neurologist. ) Stand Alone Forms: Work/School Release Interventions: ED Discharge Assessment Last Done: 05/01/22 10:47 Discharge Date/Time: 05/01/22 10:47 Print Language: Monegasque
[2022-05-01] MEDS: ondansetron HCL 4 MG/2 ML VIAL IVPUSH (09:43)
[2022-05-01] MEDS: 0.9 % Sodium Chloride 1,000 ML 999 ML IV (09:43)
[2022-05-01] MEDS: Pantoprazole Sodium 40 MG/10 ML VIAL IVPUSH (09:43)
[2022-05-01 10:01] LABS: MANUAL DIFF FLAG NO
[2022-05-01 10:07] LABS: Basophils Percent Auto 0.8 % (0-2); Eosinophils Absolute Auto 0.2 X10*3/uL (0.0-0.4); Eosinophils Percent Auto 3.4 % (0-4); Hematocrit 38.9 % (37.0-47.0); Hemoglobin 12.9 g/dl (12.0-16.0); Imm Gran Abs Auto 0.01 X10*3/uL (0.00-0.03); Imm Gran Pct Auto 0.2 % (0.0-0.4); Lymphocytes Absolute Auto 0.9 X10*3/uL (1.2-4.9); Lymphocytes Percent Auto 17.2 % (20-40); Mean Corpuscular HGB Conc 33.2 g/dl (31.0-35.0); Mean Corpuscular Hemoglobin 28.6 pg (27.0-33.0); Mean Corpuscular Volume 86.3 fL (80.0-98.0); Mean Platelet Volume 10.9 fL (9.4-12.3); Monocytes Absolute Auto 0.3 X10*3/uL (0.1-1.2); Monocytes Percent Auto 6.7 % (2-11); Neutrophils Absolute Auto 3.6 x10*3/uL (2.0-8.3); Neutrophils Percent Auto 71.7 % (45-73); Platelet Count 185 X10*3/uL (160-400); Red Blood Count 4.51 X10*6/uL (4.20-5.50); Red Cell Distribution Width 12.8 % (11.0-16.0); White Blood Count 5.1 X10*3/uL (4.8-10.8)
[2022-05-01] MEDS: SUMAtriptan succinate 25 MG TABLET PO (10:08)
[2022-05-01 10:23] LABS: Alanine Aminotransferase 17 U/L (0-31); Alkaline Phosphatase 57 U/L (39-117); Anion Gap 16 (12-20); Aspartate Amino Transferase 15 U/L (5-31); Blood Urea Nitrogen 12 mg/dL (9-16); Calcium 9.2 mg/dL (8.4-10.2); Carbon Dioxide 18 mmol/L (22-29); Chloride 108 mmol/L (96-108); Creatinine Clr Calc Pharmacy 115.4; Estimated Glomerular Filt Rate > 60; Glucose Random 89 mg/dL (60-115); Magnesium 1.7 mg/dL (1.6-2.6); Potassium 3.9 mmol/L (3.3-5.1); Sodium 138 mmol/L (135-145); Total Protein 6.8 g/dL (6.5-8.0)
== END 2022-05-01 10:47 | disposition home or self-care (01) ==
PROVIDERS: Physician Assistant Medical; Emergency Provider Emergency Medicine
DX: G43.909 Migraine, unspecified, not intractable, without status migrainosus (principal); Z79.899 Other long term (current) drug therapy; F17.200 Nicotine dependence, unspecified, uncomplicated; Z71.6 Tobacco abuse counseling
CPT/HCPCS: 36415; 80053; 83735; 85025; 96374; 96375; 99284; J2405

== ENCOUNTER → 2022-05-02 10:14 | Outpatient (BNVA) | payer OTHER, SELFPAY | PROVIDERS: Visit Provider Physician Assistant | DX: S52.502D Unspecified fracture of the lower end of left radius, subsequent encounter for closed fracture with routine healing (principal) | CPT/HCPCS: 29085 ==

== ENCOUNTER 2022-05-15 09:45 | Outpatient (REF) | payer OTHER, SELFPAY | END 2022-05-15 09:46 | disposition home or self-care (01) | LOC: HO.HOSX 09:45 | PROVIDERS: Visit Provider Physician Assistant | DX: Z13.89 Encounter for screening for other disorder (principal) ==

== ENCOUNTER → 2022-05-16 08:01 | Outpatient (BNVA) | payer OTHER, SELFPAY | PROVIDERS: Visit Provider Physician Assistant | DX: S52.502A Unspecified fracture of the lower end of left radius, initial encounter for closed fracture (principal) | CPT/HCPCS: 29085 ==

== ENCOUNTER 2022-05-31 16:49 | Outpatient (REF) | payer OTHER, SELFPAY ==
--- NOTE | ~2022-05-31 | XR_ITS ---
EXAMINATION: XR wrist LT w scaphoid CLINICAL INFORMATION: Reason for Exam M25.539 - Pain in unspecified wrist COMPARISON: 04/24/2022 TECHNIQUE: AP, lateral, and oblique views of the left wrist XR/XR wrist LT w scaphoid FINDINGS/IMPRESSION: * Distal impacted radial fracture is again noted. There is some interval osseous bridging. No soft tissue swelling. * Joint spaces are maintained without significant degenerative change.
== END 2022-05-31 16:50 | disposition home or self-care (01) ==
LOC: HO.HOSX 16:49
PROVIDERS: Visit Provider Physician Assistant
DX: S52.502D Unspecified fracture of the lower end of left radius, subsequent encounter for closed fracture with routine healing (principal); X58.XXXD Exposure to other specified factors, subsequent encounter
CPT/HCPCS: 73110

== ENCOUNTER 2022-06-29 12:26 | Outpatient (REF) | payer OTHER, SELFPAY | END 2022-06-29 12:27 | disposition home or self-care (01) | LOC: HO.HOSX 12:26 | PROVIDERS: Visit Provider Physician Assistant | DX: Z13.89 Encounter for screening for other disorder (principal) ==

== ENCOUNTER 2022-08-17 12:38 | Emergency (ER) | payer OTHER, SELFPAY ==
[2022-08-17 12:40] VITALS: BP 145/75; PULSE 89; RESP 20; TEMP 36.1; O2SAT 97; BMI 32.1
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
[2022-08-17 13:02] LABS: MANUAL DIFF FLAG NO
[2022-08-17 13:04] LABS: Basophils Absolute Auto 0.1 X10*3/uL (0.0-0.2); Basophils Percent Auto 0.7 % (0-2); Eosinophils Absolute Auto 0.4 X10*3/uL (0.0-0.4); Hematocrit 41.3 % (37.0-47.0); Hemoglobin 13.7 g/dl (12.0-16.0); Imm Gran Abs Auto 0.03 X10*3/uL (0.00-0.03); Imm Gran Pct Auto 0.3 % (0.0-0.4); Lymphocytes Absolute Auto 1.1 X10*3/uL (1.2-4.9); Lymphocytes Percent Auto 12.4 % (20-40); Mean Corpuscular HGB Conc 33.2 g/dl (31.0-35.0); Mean Corpuscular Hemoglobin 28.4 pg (27.0-33.0); Mean Corpuscular Volume 85.5 fL (80.0-98.0); Mean Platelet Volume 11.3 fL (9.4-12.3); Monocytes Absolute Auto 0.4 X10*3/uL (0.1-1.2); Monocytes Percent Auto 4.3 % (2-11); Neutrophils Percent Auto 78.3 % (45-73); Platelet Count 212 X10*3/uL (160-400); Red Blood Count 4.83 X10*6/uL (4.20-5.50); Red Cell Distribution Width 13.7 % (11.0-16.0)
[2022-08-17 13:14] LABS: Appearance Urine Clear; Color Urine Yellow; Glucose Urine UA Negative (Negative); Leukocyte Esterase Urine Small (1+) (Negative); Nitrite Urine Negative (Negative); Specific Gravity - Urine 1.015 (1.005-1.025); UMIC TRIGGER UA YES; Urine Blood Negative (Negative); Urine Ketones Negative (Negative); Urine Protein Negative (Neg-Trace)
[2022-08-17 13:15] LABS: Urine Pregnancy NEGATIVE (NEGATIVE)
[2022-08-17 13:16] LABS: UPreg QC Valid YES
[2022-08-17 13:20] LABS: Amphetamine Screen Urine Not Detected (Not Detect); Barbiturates, Urine Not Detected (Not Detect); Benzodiazepines Screen Urine Not Detected (Not Detect); Cannabinoid Screen Urine POSITIVE (Not Detect); Cocaine Screen Urine Not Detected (Not Detect); Fentanyl, urine Not Detected (Not Detect); Opiate Screen Urine Not Detected (Not Detect); Phencyclidine Screen Urine Not Detected (Not Detect)
[2022-08-17 13:26] LABS: Acetaminophen LAB < 17 mcg/mL (<30); Alanine Aminotransferase 18 U/L (0-31); Albumin Level 4.3 g/dL (3.5-5.0); Alkaline Phosphatase 57 U/L (39-117); Anion Gap 13 (12-20); Aspartate Amino Transferase 15 U/L (5-31); Bilirubin Total 0.5 mg/dL (0.0-1.0); Blood Urea Nitrogen 10 mg/dL (9-16); Calcium 9.5 mg/dL (8.4-10.2); Carbon Dioxide 20 mmol/L (22-29); Chloride 109 mmol/L (96-108); Estimated Glomerular Filt Rate > 60; Ethanol < 10 mg/dL; Glucose Random 99 mg/dL (60-115); Potassium 4.3 mmol/L (3.3-5.1); Salicylate < 5.0 mg/dL (15-30); Sodium 138 mmol/L (135-145); Total Protein 7.5 g/dL (6.5-8.0)
[2022-08-17] MEDS: LORazepam 1 MG TABLET PO (13:29)
[2022-08-17 13:33] LABS: Bacteria Urine None Seen (None Seen); Hyaline Casts Urine 0-2 /LPF (0-2); RBC Urine 0-2 /HPF (0-2); Squamous Epithelial Cell Urine 0-2 /HPF (0-2); WBC Urine 0-5 /HPF (0-5)
[2022-08-17 19:24] LABS: COVID-19 Test Negative (Negative); IDNOW Serial# 6674DD1D
== END 2022-08-17 19:40 | disposition home or self-care (01) ==
PROVIDERS: Physician Assistant Medical; Emergency Provider Emergency Medicine; PCP Nurse Practitioner Adult Health
DX: F41.9 Anxiety disorder, unspecified (principal); F32.A Depression, unspecified; Z20.822 Contact with and (suspected) exposure to COVID-19; F17.200 Nicotine dependence, unspecified, uncomplicated; F12.90 Cannabis use, unspecified, uncomplicated; Z72.89 Other problems related to lifestyle; Z63.4 Disappearance and death of family member; Z79.899 Other long term (current) drug therapy
CPT/HCPCS: 36415; 80053; 80143; 80179; 80307; 81001; 81025; 85025; 87635; 99284; S9485

== ENCOUNTER 2022-12-03 11:28 | Outpatient (AMB) | payer OTHER, SELFPAY ==
--- NOTE | 2022-12-03 12:27 | AM.OFFWIN_ITS ---
Intake Vital Signs 12/03/22 12:29 Height 5 ft 1 in Weight 193 lb BMI 36.5 BP 120/70 Blood Pressure Location Lt brachial Position Sitting Pulse 79 Pulse Source Pulse Oximeter Temp 98 F Temp Source Temporal Artery Scan Intake Visit Reasons: EST/right foot pain Intake Note: Pt is here c/o right foot pain for the last three days. Pt states she has trip ped a few times but has not fell. Pt states no injuries. Patient Tobacco Use Status: Current everyday Tobacco user Allergies latex [LATEX] Allergy (Intermediate, Verified 12/03/22 12:32) HIVES diphenhydramine [From Benadryl] Adverse Reaction (Intermediate, Verified 12/03/22 12:32) Agitated metoclopramide [From Reglan] Adverse Reaction (Intermediate, Verified 12/03/22 12:32) Anxiety Do you need a note to return to daycare/school/sports/work: No HPI EST/right foot pain HPI Details 32-year-old female patient presents today with right lateral foot pain for the last 3 days. No distinct inciting incident that she can recall. Pain with any pressure on foot/walking. Pain is primarily on lateral aspect of foot. she has been icing, elevating, and using Rajat wraps with some minor benefit. Also has been taking ibuprofen p.r.n.. No prior injury or trauma. [facility] Medical History Diverticulosis Anxiety IBS (irritable bowel syndrome) GERD (gastroesophageal reflux disease) Migraine PCOS (polycystic ovarian syndrome) Fibromyalgia Social History Alcohol intake: never Patient Tobacco Use Status: Current everyday Tobacco user Substance Use Type: Marijuana Physical Exam Vital Signs: Last Vital Signs Temp 98 F 12/03/22 12:29 Pulse 79 12/03/22 12:29 BP 120/70 12/03/22 12:29 BMI result Body Mass Index 36.5 Const General: cooperative and healthy appearing Resp Effort & Inspection: normal respiratory effort and able to speak in complete sentences Auscultation: clear to auscultation bilaterally Cardio Jugular venous distension: no JVD Palpation: normal PMI Rate: regular rate Rhythm: regular rhythm Skin General skin exam: no rashes or lesions noted Extrem Right lower extremity: foot (pain in foot with dorsiflexion) Details: normal capillary refill, normal to inspection, tenderness Location: of the lateral foot (lateral malleolus), toes with normal ROM and vascular exam Details: dorsalis pedis pulse present, posterior tibial pulse present and normal capillary refill Psych Appearance: grossly normal Mental Status: mental status grossly normal Speech and movement: Normal speech and movement present Assessment & Plan Assessment & Plan (1) Right foot pain: Code(s): M79.671 - Pain in right foot Plan: Pain in right foot, primarily posterior/lateral aspect of foot, near lateral malleolus and lateral aspect of heel. X-ray done in the office and reviewed by me personally: No fracture identified upon initial review. Will await official radiology report, and notify patient once these results are available. I suspect her pain is related to a plantar fasciitis. I have reapplied Rajat bandage to her foot / ankle, as patient reports over risk for benefit from this. I also advised she continue to ice and elevate, and will start her on a short course of meloxicam to see if this provides any benefit days. We reviewed indications, use, possible side effects of this. If she does not improve with time and conservative measures, she should return to clinic, PCP, or request a podiatry referral (2) Plantar fasciitis of right foot: Code(s): M72.2 - Plantar fascial fibromatosis Orders: Orders XR foot RT 2V Today M79.671 - Pain in right foot Medications: New meloxicam 15 mg PO DAILY 7 tabs 0RF M72.2 - Plantar fascial fibromatosis, M79.671 - Pain in right foot Coding Level of Care Code Est Pt Level 3 (49316) Diagnoses Right foot pain M79.671 Plantar fasciitis of right foot M72.2
[2022-12-03 12:29] VITALS: BP 120/70; PULSE 79; TEMP 36.6; BMI 36.5
== END 2022-12-03 13:36 | disposition home or self-care (01) ==
PROVIDERS: PCP Nurse Practitioner Adult Health; Visit Provider Nurse Practitioner Family
DX: M79.671 Pain in right foot (principal); M72.2 Plantar fascial fibromatosis
CPT/HCPCS: 99213

== ENCOUNTER 2022-12-03 12:53 | Outpatient (REF) | payer OTHER, SELFPAY ==
--- NOTE | ~2022-12-03 | XR_ITS ---
EXAMINATION: XR FOOT, RIGHT CLINICAL INFORMATION: Right foot pain. COMPARISON: None available. TECHNIQUE: AP, lateral, and oblique views of the right foot. FINDINGS: The bones and soft tissues appear unremarkable. No fracture identified. Alignment is anatomic. Joint spaces are maintained. XR/XR foot RT 2V IMPRESSION: Normal plain film examination of the right foot.
== END 2022-12-03 12:54 | disposition home or self-care (01) ==
LOC: HO.HMGCX 12:53
PROVIDERS: PCP Nurse Practitioner Adult Health; Visit Provider Nurse Practitioner Family
DX: M79.671 Pain in right foot (principal)
CPT/HCPCS: 73620

== ENCOUNTER 2023-01-19 00:56 | Emergency (ER) | payer OTHER, SELFPAY ==
[2023-01-19 01:06] VITALS: BP 124/78; PULSE 104; RESP 18; TEMP 37.4; O2SAT 97; BMI 36.3
[2023-01-19 01:15] VITALS: BP 124/78; PULSE 104; RESP 16; TEMP 37.4; O2SAT 98
--- NOTE | 2023-01-19 01:17 | MHC.EDTECH ---
PATIENT BIBA ,VITALS TAKEN ,SHI GARRISON IN ROOM TRIAGING PATIENT .
[2023-01-19 01:18] VITALS: BP 130/84; PULSE 100; O2SAT 96
--- NOTE | 2023-01-19 01:19 | PC.NURSE ---
Pt ca&ox4, no signs of distress. Pt denies pain. Pt reports using fathers methadone 40mg for menstrual pain. Pt reports she is on control and has had per period x2 this month. Plan of care ongoing.
--- NOTE | 2023-01-19 01:32 | PC.NURSE ---
Pt assisted onto bedside commode. Pt assisted back into bed. UA collected and sent. Pt requested and given another warm blanket. Provider advised of recent methadone use. Plan of care ongoing.
[2023-01-19 01:36] LABS: Appearance Urine Clear; Color Urine Yellow; Glucose Urine UA Negative (Negative); Leukocyte Esterase Urine Small (1+) (Negative); Nitrite Urine Negative (Negative); UMIC TRIGGER UACC YES; Urine Blood Large (3+) (Negative); Urine Ketones Negative (Negative); Urine Protein Negative (Neg-Trace)
[2023-01-19 01:48] LABS: Bacteria Urine Trace (None Seen); Hyaline Casts Urine 0-2 /LPF (0-2); UACC Culture Trigger YES
--- NOTE | 2023-01-19 02:06 | ED_ITS ---
HPI - Nausea/Vomiting/Diarrhea General Chief complaint: Nausea/Vomiting/Diarrhea Stated complaint: Nausea/Vomiting Time Seen by Provider: 01/19/23 01:49 Source: patient Mode of arrival: ambulatory Limitations: no limitations History of Present Illness HPI Narrative: Patient comes in the emergency room complaining of nausea vomiting diarrhea, migraine headache and menstrual cramping. Patient states that she takes some Triptan medication at home but has not had any relief. Patient admits that for the last few days she has been taking methadone, that she took from her father. Patient admits that this was not smart, however, patient states that she gets severe anxiety from going to the hospital and therefore try to deal with the migraine at home. Patient denies suicidal or homicidal ideation Related Data Home Medications Medication Instructions Recorded Confirmed norethindrone (contraceptive) 0.35 mg 08/17/22 clonidine HCl 0.1 mg tablet 0.1 mg PO BID 12/03/22 lorazepam 0.5 mg tablet 0.5 mg PO DAILY PRN 12/03/22 sertraline 50 mg tablet 75 mg PO 12/03/22 Previous Rx's Medication Instructions Recorded acetaminophen 500 mg tablet 500 mg PO Q4-6H PRN fever or pain 04/24/22 (Tylenol Extra Strength) 30 days #168 tabs pantoprazole 40 mg tablet,delayed 40 mg PO DAILY #30 tabs 05/01/22 release (Protonix) meloxicam 15 mg tablet 15 mg PO DAILY #7 tabs 12/03/22 ketorolac 10 mg tablet 10 mg PO TID #15 tabs 01/19/23 prochlorperazine maleate 5 mg 5 mg PO TID PRN nausea and 01/19/23 tablet (Compazine) vomiting #10 tabs Allergies Allergy/AdvReac Type Severity Reaction Status Date / Time latex [LATEX] Allergy Intermediate HIVES Verified 12/03/22 12:32 diphenhydramine AdvReac Intermediate Agitated Verified 12/03/22 12:32 [From Benadryl] metoclopramide [From Reglan] AdvReac Intermediate Anxiety Verified 12/03/22 12:32 Review of Systems 2 Review of Systems: Constitutional : No Weight loss, No Fever, No Chills, No Night Sweats, No Fatigue, No Malaise ENT/Mouth : No Hearing loss, No Ear Pain, No Nasal Congestion, No Sinus Pain, No Hoarseness, No sore throat, No Rhinorrhea, No Swallowing Difficulty Eyes: No Eye Pain, No Swelling, No Redness, No Foreign Body, No Discharge, No Vision Changes Cardiovascular : No Chest Pain, No SOB, No Dyspnea on Exertion, No Orthopnea, No Edema, No Palpitations Respiratory : No Cough, No Sputum, No Wheezing, No Smoke Exposure, No Dyspnea Gastrointestinal : Patient complaining of nausea vomiting, No Diarrhea, No Constipation, complaining of uterine cramps from menstruation Genitourinary : Patient complaining of menstrual bleeding that is fairly heavy but it is at baseline, No Dysuria, No Urinary Frequency, No Hematuria, No Urinary Incontinence, No Urgency, No Flank Pain, No Urinary Flow Changes, No Hesitancy Musculoskeletal : No joint pain, No Myalgias, No Joint Swelling Skin : No Skin Lesions, No rash Neuro : No Weakness, No Numbness, No Paresthesias, No Loss of Consciousness, No Dizziness, complaining of migraine headache Psych : No Anxiety/Panic, No Depression, No SI/HI/AH/VH, No Social Issues, Heme/Lymph: No Bruising, No Bleeding,No Lymphadenopathy Endocrine : No Polyuria, No Polydipsia, No Temperature Intolerance PMFSH Past Medical History Medical History Diverticulosis Anxiety IBS (irritable bowel syndrome) GERD (gastroesophageal reflux disease) Migraine PCOS (polycystic ovarian syndrome) Fibromyalgia Social History Social History Alcohol intake: never Patient Tobacco Use Status: Current everyday Tobacco user Smoked in Last 30 Days: Yes Use of substances other than those prescribed or required for medical reasons: Yes Substance Use Type: Marijuana Substance Use Type Other:: Methadone Substance Use Frequency: Recent Binge Substance Use Frequency Other:: Pt reports over the last 3 days. Last Used Substance: Hours (ago) Advance Directives: No Advance Directives Information Provided: No Physical Exam 2 Vital Signs: Vital Signs: Last Vital Signs Temp 98.9 F 01/19/23 03:54 Pulse 111 H 01/19/23 03:54 Resp 18 01/19/23 03:54 BP 136/85 01/19/23 03:54 Pulse Ox 98 01/19/23 03:54 O2 Del Method Room Air 01/19/23 03:54 BMI result Body Mass Index 36.3 Const: Other: Appearance: Alert. Oriented X3. No acute distress. Eyes: Pupils equal, round and reactive to light. ENT: Pharynx normal. Neck: Normal inspection. Neck supple. No lymph nodes noted. No crepitus, normal flexion and extension, no rigidity CVS: Normal heart rate and rhythm. Pulses normal. Normal S1 and S2 Respiratory: No respiratory distress. Breath sounds normal. No Wheezing. No rales Abdomen: Soft , mild discomfort to palpation in suprapubic area, no rebound, no guarding, No rigidity. No distention. Skin: Skin warm and dry. Normal skin color. Normal skin turgor. Extremities: No lower extremity edema. No Lacerations. No Rash Neuro: Oriented X 3. No motor deficit. No sensory deficit. Moving all extremities. No slurred speech. CN 2 through 12 grossly intact Psych: calm, cooperative, normal affect Course Course Course Narrative: -patient receiving IV fluids, Zofran, Compazine and Benadryl -all of the labs pending Medications Administered Discontinued Medications Generic Name Dose Route Start Last Admin Trade Name Freq PRN Reason Stop Dose Admin Diphenhydramine HCl 25 mg 01/19/23 02:05 01/19/23 02:47 Diphenhydramine Hcl 50 Mg/Ml Vial IVPUSH 01/19/23 02:06 Not Given ONCE ONE Sodium Chloride 1,000 mls @ 999 mls/hr 01/19/23 02:05 01/19/23 02:32 Ns IVCONT 01/19/23 03:05 999 mls/hr .Q1H1M ONE Administration Ketorolac Tromethamine 30 mg 01/19/23 02:05 01/19/23 02:32 Ketorolac Tromethamine 30 Mg/Ml Vial IVPUSH 01/19/23 02:06 30 mg ONCE ONE Administration Prochlorperazine Edisylate 10 mg 01/19/23 02:05 01/19/23 02:32 Prochlorperazine Edisylate 10 Mg/2 Ml Vial IVPUSH 01/19/23 02:06 10 mg ONCE ONE Administration Medical Decision Making Medical Decision Making MDM Narrative: -patient states that she feels much better, the headache is nearly gone. -my interpretation of labs, unremarkable hematology and chemistry. Urinalysis shows a large amount of blood, patient is currently menstruating, patient has a small amount of leukocyte esterase, patient has no UTI symptoms. No antibiotic indicated at this time. -patient states that she has been having headaches more frequent than usual, patient's father very recently Differential Diagnosis Differential Diagnoses: The differential diagnosis associated with the presentation includes (Tension headache, migraine headache, cluster headache, anxiety, depression) Lab Data MDM Lab Attestation statement: I reviewed the patient's lab results. 01/19/23 02:27 01/19/23 02:27 Labs: Lab Results 01/19/23 01/19/23 Range/Units 01:30 02:27 WBC 8.4 (4.8-10.8) X10*3/uL RBC 4.32 (4.20-5.50) X10*6/uL Hgb 12.4 (12.0-16.0) g/dl Hct 37.6 (37.0-47.0) % MCV 87.0 (80.0-98.0) fL MCH 28.7 (27.0-33.0) pg MCHC 33.0 (31.0-35.0) g/dl RDW 12.5 (11.0-16.0) % Plt Count 244 (160-400) X10*3/uL MPV 11.0 (9.4-12.3) fL Immature Gran % (Auto) 0.2 (0.0-0.4) % Neut % (Auto) 88.1 H (45-73) % Lymph % (Auto) 5.9 L (20-40) % [place] % (Auto) 4.4 (2-11) % Eos % (Auto) 1.0 (0-4) % Baso % (Auto) 0.4 (0-2) % Lymph # (Auto) 0.5 L (1.2-4.9) X10*3/uL [place] # (Auto) 0.4 (0.1-1.2) X10*3/uL Eos # (Auto) 0.1 (0.0-0.4) X10*3/uL Baso # (Auto) 0.0 (0.0-0.2) X10*3/uL Abs Immat Gran (auto) 0.02 (0.00-0.03) X10*3/uL Absolute Neuts (auto) 7.4 (2.0-8.3) x10*3/uL Absolute Nucleated RBC 0.000 (0.0-0.012) X10*3/uL Nucleated RBC % (auto) 0.0 (0.0-0.2) /100WBC Sodium 140 (135-145) mmol/L Potassium 3.6 (3.3-5.1) mmol/L Chloride 105 (96-108) mmol/L Carbon Dioxide 25 (22-29) mmol/L Anion Gap 14 (12-20) BUN 7 L (9-16) mg/dL Creatinine 0.65 (0.5-1.4) mg/dL Estim Creat Clear Calc 127.2 Estimated GFR > 60 Random Glucose 109 (60-115) mg/dL Calcium 9.4 (8.4-10.2) mg/dL Total Bilirubin 0.3 (0.0-1.0) mg/dL Direct Bilirubin 0.1 (0.0-0.5) mg/dL AST 27 (5-31) U/L ALT 54 H (0-31) U/L Alkaline Phosphatase 74 (39-117) U/L Total Protein 7.2 (6.5-8.0) g/dL Albumin 3.9 (3.5-5.0) g/dL Lipase 22 (8-78) U/L Beta HCG, Quant < 2 mIU/mL Urine Color Yellow Urine Appearance Clear Urine pH 6.0 (5.0-9.0) Ur Specific [place] 1.010 (1.005-1.025) Urine Protein Negative (Neg-Trace) mg/dL Urine Glucose (UA) Negative (Negative) mg/dL Urine Ketones Negative (Negative) mg/dL Urine Blood Large (3+) H (Negative) Urine Nitrite Negative (Negative) Ur Leukocyte Esterase Small (1+) H (Negative) Urine RBC 3-5 H (0-2) /HPF Urine WBC 6-10 (0-5) /HPF Ur Squamous Epith Cells 3-5 (0-2) /HPF Urine Bacteria Trace (None Seen) Hyaline Casts 0-2 (0-2) /LPF Discharge Plan Discharge Clinical Impression: Headache, migraine Patient Disposition: Home, Self-Care Instructions: Migraine Headache (ED) Additional Instructions: Please follow-up with your primary care physician tomorrow. If you have any worsening or new symptoms, please return to the emergency room or call 911 Prescriptions: New ketorolac 10 mg tablet 10 mg PO TID Qty: 15 0RF Rx Instructions: Do not use this medication with naproxen, ibuprofen. Only Tylenol if needed prochlorperazine maleate [Compazine] 5 mg tablet 5 mg PO TID PRN (Reason: nausea and vomiting) Qty: 10 0RF No Action pantoprazole [Protonix] 40 mg tablet,delayed release (DR/EC) 40 mg PO DAILY Qty: 30 0RF norethindrone (contraceptive) 0.35 mg lorazepam 0.5 mg tablet 0.5 mg PO DAILY PRN sertraline 50 mg tablet 75 mg PO clonidine HCl 0.1 mg tablet 0.1 mg PO BID meloxicam 15 mg tablet 15 mg PO DAILY Qty: 7 0RF acetaminophen [Tylenol Extra Strength] 500 mg tablet 500 mg PO Q4-6H PRN (Reason: fever or pain) 30 Days Qty: 168 0RF Stand Alone Forms: Work/School Release
[2023-01-19] MEDS: 0.9 % Sodium Chloride 1,000 ML 999 ML IVCONT (02:32)
[2023-01-19] MEDS: Ketorolac Tromethamine 30 MG/ML VIAL IVPUSH (02:32)
[2023-01-19] MEDS: Prochlorperazine Edisylate 10 MG/2 ML VIAL IVPUSH (02:32)
[2023-01-19 02:45] LABS: MANUAL DIFF FLAG NO
[2023-01-19 02:47] LABS: Basophils Percent Auto 0.4 % (0-2); Eosinophils Absolute Auto 0.1 X10*3/uL (0.0-0.4); Hematocrit 37.6 % (37.0-47.0); Hemoglobin 12.4 g/dl (12.0-16.0); Imm Gran Abs Auto 0.02 X10*3/uL (0.00-0.03); Imm Gran Pct Auto 0.2 % (0.0-0.4); Lymphocytes Absolute Auto 0.5 X10*3/uL (1.2-4.9); Lymphocytes Percent Auto 5.9 % (20-40); Mean Corpuscular Hemoglobin 28.7 pg (27.0-33.0); Monocytes Absolute Auto 0.4 X10*3/uL (0.1-1.2); Monocytes Percent Auto 4.4 % (2-11); Neutrophils Absolute Auto 7.4 x10*3/uL (2.0-8.3); Neutrophils Percent Auto 88.1 % (45-73); Platelet Count 244 X10*3/uL (160-400); Red Blood Count 4.32 X10*6/uL (4.20-5.50); Red Cell Distribution Width 12.5 % (11.0-16.0); White Blood Count 8.4 X10*3/uL (4.8-10.8)
--- NOTE | 2023-01-19 02:47 | PC.NURSE ---
benadryl not given to pt d/t pt allergy. Provider Brian advised. Plan of care ongoing.
--- NOTE | 2023-01-19 02:47 | PC.NURSE ---
IV placed in left AC. Fluids started. Pt medicated per may. Labs completed. Pt requested and given warm blanket. Plan of care ongoing.
[2023-01-19 03:07] LABS: Alanine Aminotransferase 54 U/L (0-31); Albumin Level 3.9 g/dL (3.5-5.0); Alkaline Phosphatase 74 U/L (39-117); Anion Gap 14 (12-20); Aspartate Amino Transferase 27 U/L (5-31); Bilirubin Direct 0.1 mg/dL (0.0-0.5); Bilirubin Total 0.3 mg/dL (0.0-1.0); Blood Urea Nitrogen 7 mg/dL (9-16); Calcium 9.4 mg/dL (8.4-10.2); Carbon Dioxide 25 mmol/L (22-29); Chloride 105 mmol/L (96-108); Creatinine Clr Calc Pharmacy 127.2; Estimated Glomerular Filt Rate > 60; Glucose Random 109 mg/dL (60-115); Lipase 22 U/L (8-78); Potassium 3.6 mmol/L (3.3-5.1); Sodium 140 mmol/L (135-145); Total Protein 7.2 g/dL (6.5-8.0)
[2023-01-19 03:09] LABS: HCG Quantitative < 2 mIU/mL
[2023-01-19 03:54] VITALS: BP 136/85; PULSE 111; RESP 18; TEMP 37.2; O2SAT 98
--- NOTE | 2023-01-19 03:55 | MHC.EDTECH ---
0400 Rounding done ,vitals taken ,Pt was given some ice chips ,Pt comfortable at this time ,no apparent distress noted will continue to monitor .
--- NOTE | 2023-01-19 04:48 | PC.NURSE ---
Pt requested and given phone to call for a ride home.
== END 2023-01-19 05:04 | disposition home or self-care (01) ==
PROVIDERS: Emergency Provider Emergency Medicine
DX: G43.909 Migraine, unspecified, not intractable, without status migrainosus (principal); R11.2 Nausea with vomiting, unspecified; R10.30 Lower abdominal pain, unspecified; N94.6 Dysmenorrhea, unspecified; F11.20 Opioid dependence, uncomplicated; F12.90 Cannabis use, unspecified, uncomplicated; F17.200 Nicotine dependence, unspecified, uncomplicated; Z79.899 Other long term (current) drug therapy
CPT/HCPCS: 36415; 80048; 80076; 81001; 83690; 84702; 85025; 87086; 96361; 96374; 96375; 99284; J1200; J1885

== ENCOUNTER 2023-07-06 13:33 | Emergency (ER) | payer OTHER, SELFPAY ==
[2023-07-06 14:41] VITALS: BP 118/78; PULSE 89; RESP 16; TEMP 36.7; O2SAT 99; BMI 37.5
--- NOTE | 2023-07-06 14:42 | ED.GENADULT ---
HPI - General Adult General Chief complaint: Abdominal Pain Stated complaint: kidney pain Time Seen by Provider: 07/06/23 20:45 History of Present Illness HPI narrative: The patient is a 33-year-old female who says that she has been having pain in her back over the last week. She says that she feels as if she might have a kidney infection. She says that she has not had dysuria or urgency but she says that sometimes she has had urinary tract infections without these symptoms. She also says that she has had kidney infections in the past. She says that she came to the emergency room for evaluation of these pains. No fever. She has occasionally felt nauseated and vomited. Related Data Home Medications ?Medication ?Instructions ?Recorded ?Confirmed norethindrone (contraceptive) 0.35 mg 08/17/22 clonidine HCl 0.1 mg tablet 0.1 mg PO BID 12/03/22 lorazepam 0.5 mg tablet 0.5 mg PO DAILY PRN 12/03/22 sertraline 50 mg tablet 75 mg PO 12/03/22 Previous Rx's ?Medication ?Instructions ?Recorded acetaminophen 500 mg tablet 500 mg PO Q4-6H PRN fever or pain 04/24/22 (Tylenol Extra Strength) 30 days #168 tabs pantoprazole 40 mg tablet,delayed 40 mg PO DAILY #30 tabs 05/01/22 release (Protonix) meloxicam 15 mg tablet 15 mg PO DAILY #7 tabs 12/03/22 ketorolac 10 mg tablet 10 mg PO TID #15 tabs 01/19/23 prochlorperazine maleate 5 mg 5 mg PO TID PRN nausea and 01/19/23 tablet (Compazine) vomiting #10 tabs cyclobenzaprine 10 mg tablet 10 mg PO TID PRN muscle spasm #14 07/06/23 tabs ibuprofen 600 mg tablet 600 mg PO Q6H PRN pain #14 tabs 07/06/23 Allergies Allergy/AdvReac Type Severity Reaction Status Date / Time latex [LATEX] Allergy Intermediate HIVES Verified 07/06/23 14:44 diphenhydramine AdvReac Intermediate Agitated Verified 07/06/23 14:44 [From Benadryl] metoclopramide [From Reglan] AdvReac Intermediate Anxiety Verified 07/06/23 14:44 Review of Systems Review of Systems: Yes all other systems are reviewed and are negative [facility] Past Medical History Medical History Diverticulosis Anxiety IBS (irritable bowel syndrome) GERD (gastroesophageal reflux disease) Migraine PCOS (polycystic ovarian syndrome) Fibromyalgia Social History Social History Alcohol intake: never Patient Tobacco Use Status: Current everyday Tobacco user Smoked in Last 30 Days: No Use of substances other than those prescribed or required for medical reasons: No Substance Use Type: Marijuana Advance Directives: No Advance Directives Information Provided: No Patient : No Physical Exam ED Vital Signs: Vital Signs - 24 hr 07/06/23 14:41 07/06/23 17:29 07/06/23 19:40 Temperature 98.0 F 97.8 F 98.2 F Pulse Rate 89 75 79 Respiratory Rate 16 16 14 Blood Pressure 118/78 123/76 110/79 Pulse Oximetry 99 99 96 Oxygen Delivery Method Room Air Room Air Room Air 07/06/23 21:31 Temperature 98.7 F Pulse Rate 80 Respiratory Rate 14 Blood Pressure 108/81 Pulse Oximetry 96 Oxygen Delivery Method Room Air BMI result Body Mass Index 37.5 Const Other: The patient is awake and alert. She does not appear in obvious distress or seem toxic. HENMT Other: Face is symmetrical. Mucous membranes moist. Eyes Other: Pupils are round equal, conjunctivae are clear Neck Other: Moving her neck easily Resp Effort & Inspection: normal respiratory effort Auscultation: clear to auscultation bilaterally Cardio Rate: regular rate Rhythm: regular rhythm Heart sounds: S1 normal heart sound present and S2 normal heart sound present GI Other: Abdomen seemed soft. There was some diffuse lower abdominal tenderness that did not seem focal in any way. No rebound or guarding. Back/Spine/Pelvis Other: The patient seems to have bilateral CVA tenderness. Skin Other: Skin is dry and unremarkable Neuro Other: The patient is awake, alert, with a normal mental status. Grossly neurologically intact. Extrem Other: No peripheral edema Course Course Course Narrative: This is an RME: Additional HPI, ROS, PE not included below will be deferred to primary provider. This is a [id number], with a hx of pylonephritis,chronic migraines, IBS, gastroparesis, PCOS, who presents to the ER with complaints of back pain for the last week. Patient initially felt a ?twinge? in her back. She states that this has since progressed and now having nausea and vomiting. hx of hospitalization due to kidney infections two years ago. Plan: Labs, UA Medications Administered Discontinued Medications Generic Name Dose Route Start Last Admin Trade Name Jeana PRN Reason Stop Dose Admin Acetaminophen 975 mg 07/06/23 21:03 07/06/23 21:25 Acetaminophen 325 Mg Tablet PO 07/06/23 21:04 975 mg ONCE ONE Administration Cyclobenzaprine HCl 10 mg 07/06/23 21:03 07/06/23 21:25 Cyclobenzaprine Hcl 10 Mg Tablet PO 07/06/23 21:04 10 mg ONCE ONE Administration Ketorolac Tromethamine 30 mg 07/06/23 21:03 07/06/23 21:25 Ketorolac Tromethamine 30 Mg/Ml Vial IM 07/06/23 21:04 30 mg ONCE ONE Administration Medical Decision Making Medical Decision Making [facility] Narrative: The patient is a 33-year-old female complaining of lower abdominal and bilateral flank pain. Her vital signs are unremarkable. She is afebrile. Her history is not really suggestive of a kidney stone. She has not really describing unilateral flank pain. This would also make pyelonephritis unlikely. The patient's labs are very unremarkable. Her white count is 4.1 with no left shift. Her CRP is normal. Her urinalysis shows trace leukocyte esterase but is nitrite negative and has only 0-5 white cells. No bacteria. There is no blood in her urine. My overall impression is that the patient does not have UTI, a kidney stone, or pyelonephritis. Additionally her physical exam does not suggest an acute abdomen in any way and her labs do not suggest an acute intra-abdominal process of any kind. Overall she may be having muscular pain. She said that she had been doing a lot of cleaning before the pain began. She will be advised to use ibuprofen and acetaminophen. She will also be prescribed cyclobenzaprine. Lab Data 07/06/23 15:11 07/06/23 15:11 Labs: Lab Results 07/06/23 07/06/23 Range/Units 15:11 15:11 WBC 4.1 L (4.8-10.8) X10*3/uL RBC 4.65 (4.20-5.50) X10*6/uL Hgb 13.0 (12.0-16.0) g/dl Hct 38.6 (37.0-47.0) % MCV 83.0 (80.0-98.0) fL MCH 28.0 (27.0-33.0) pg MCHC 33.7 (31.0-35.0) g/dl RDW 13.1 (11.0-16.0) % Plt Count 235 (160-400) X10*3/uL MPV 10.9 (9.4-12.3) fL Immature Gran % (Auto) 0.2 (0.0-0.4) % Neut % (Auto) 49.2 (45-73) % Lymph % (Auto) 26.4 (20-40) % [place] % (Auto) 7.7 (2-11) % Eos % (Auto) 15.3 H (0-4) % Baso % (Auto) 1.2 (0-2) % Lymph # (Auto) 1.1 L (1.2-4.9) X10*3/uL [place] # (Auto) 0.3 (0.1-1.2) X10*3/uL Eos # (Auto) 0.6 H (0.0-0.4) X10*3/uL Baso # (Auto) 0.1 (0.0-0.2) X10*3/uL Abs Immat Gran (auto) 0.01 (0.00-0.03) X10*3/uL Absolute Neuts (auto) 2.0 (2.0-8.3) x10*3/uL Absolute Nucleated RBC 0.000 (0.0-0.012) X10*3/uL Nucleated RBC % (auto) 0.0 (0.0-0.2) /100WBC Sodium 135 (135-145) mmol/L Potassium 4.5 (3.3-5.1) mmol/L Chloride 110 H (96-108) mmol/L Carbon Dioxide 17 L (22-29) mmol/L Anion Gap 13 (12-20) BUN 7 L (9-16) mg/dL Creatinine 0.64 (0.5-1.4) mg/dL Estim Creat Clear Calc 130.2 Estimated GFR > 60 Random Glucose 99 (60-115) mg/dL Calcium 9.4 (8.4-10.2) mg/dL Total Bilirubin 0.3 (0.0-1.0) mg/dL Direct Bilirubin 0.1 (0.0-0.5) mg/dL AST 18 (5-31) U/L ALT 20 (0-31) U/L Alkaline Phosphatase 72 (39-117) U/L C-Reactive Protein 0.50 (< or = 0.50) mg/dL Total Protein 7.6 (6.5-8.0) g/dL Albumin 3.8 (3.5-5.0) g/dL Beta HCG, Quant < 2 < 2 mIU/mL Urine Color Yellow Urine Appearance Clear Urine pH 7.5 (5.0-9.0) Ur Specific [place] 1.015 (1.005-1.025) Urine Protein Negative (Neg-Trace) mg/dL Urine Glucose (UA) Negative (Negative) mg/dL Urine Ketones Negative (Negative) mg/dL Urine Blood Negative (Negative) Urine Nitrite Negative (Negative) Ur Leukocyte Esterase Trace H (Negative) Urine RBC 0-2 (0-2) /HPF Urine WBC 0-5 (0-5) /HPF Ur Squamous Epith Cells 3-5 (0-2) /HPF Urine Bacteria None Seen (None Seen) Hyaline Casts 0-2 (0-2) /LPF Discharge Plan Discharge Clinical Impression: Back pain Patient Disposition: Home, Self-Care Additional Instructions: Your testing today does not suggest presence of a urinary tract infection. Additionally your testing does not suggest that any other infectious process is likely. I think it is probable that your pain is a muscular pain. You may take 2 extra-strength acetaminophen (Tylenol) up to 3 times a day as needed for pain. You may take the ibuprofen prescribed as needed as well. Additionally I have sent a prescription for a muscle relaxant to your pharmacy. You may take this medication, cyclobenzaprine, up to 3 times a day as well as needed. Please follow up soon with your regular doctor. Return to the emergency room if worse. Prescriptions: New ibuprofen 600 mg tablet 600 mg PO Q6H PRN (Reason: pain) Qty: 14 0RF cyclobenzaprine 10 mg tablet 10 mg PO TID PRN (Reason: muscle spasm) Qty: 14 0RF No Action pantoprazole [Protonix] 40 mg tablet,delayed release (DR/EC) 40 mg PO DAILY Qty: 30 0RF ketorolac 10 mg tablet 10 mg PO TID Qty: 15 0RF Rx Instructions: Do not use this medication with naproxen, ibuprofen. Only Tylenol if needed prochlorperazine maleate [Compazine] 5 mg tablet 5 mg PO TID PRN (Reason: nausea and vomiting) Qty: 10 0RF norethindrone (contraceptive) 0.35 mg lorazepam 0.5 mg tablet 0.5 mg PO DAILY PRN sertraline 50 mg tablet 75 mg PO clonidine HCl 0.1 mg tablet 0.1 mg PO BID meloxicam 15 mg tablet 15 mg PO DAILY Qty: 7 0RF acetaminophen [Tylenol Extra Strength] 500 mg tablet 500 mg PO Q4-6H PRN (Reason: fever or pain) 30 Days Qty: 168 0RF Referrals: Nydia Santoyo. Chaz Mckee [Provider Group] (needs new PCP) Interventions: ED Discharge Assessment Last Done: 07/06/23 21:31 Discharge Date/Time: 07/06/23 21:32 Print Language: Romanian
[2023-07-06 15:15] LABS: MANUAL DIFF FLAG NO
[2023-07-06 15:17] LABS: Basophils Absolute Auto 0.1 X10*3/uL (0.0-0.2); Basophils Percent Auto 1.2 % (0-2); Eosinophils Absolute Auto 0.6 X10*3/uL (0.0-0.4); Eosinophils Percent Auto 15.3 % (0-4); Hematocrit 38.6 % (37.0-47.0); Imm Gran Abs Auto 0.01 X10*3/uL (0.00-0.03); Imm Gran Pct Auto 0.2 % (0.0-0.4); Lymphocytes Absolute Auto 1.1 X10*3/uL (1.2-4.9); Lymphocytes Percent Auto 26.4 % (20-40); Mean Corpuscular HGB Conc 33.7 g/dl (31.0-35.0); Mean Platelet Volume 10.9 fL (9.4-12.3); Monocytes Absolute Auto 0.3 X10*3/uL (0.1-1.2); Monocytes Percent Auto 7.7 % (2-11); Neutrophils Percent Auto 49.2 % (45-73); Platelet Count 235 X10*3/uL (160-400); Red Blood Count 4.65 X10*6/uL (4.20-5.50); Red Cell Distribution Width 13.1 % (11.0-16.0); White Blood Count 4.1 X10*3/uL (4.8-10.8)
[2023-07-06 15:21] LABS: Appearance Urine Clear; Color Urine Yellow; Glucose Urine UA Negative (Negative); Leukocyte Esterase Urine Trace (Negative); Nitrite Urine Negative (Negative); PH 7.5 (5.0-9.0); Specific Gravity - Urine 1.015 (1.005-1.025); UMIC TRIGGER UACC YES; Urine Blood Negative (Negative); Urine Ketones Negative (Negative); Urine Protein Negative (Neg-Trace)
[2023-07-06 15:26] LABS: Bacteria Urine None Seen (None Seen); Hyaline Casts Urine 0-2 /LPF (0-2); RBC Urine 0-2 /HPF (0-2); WBC Urine 0-5 /HPF (0-5)
[2023-07-06 15:42] LABS: Alanine Aminotransferase 20 U/L (0-31); Albumin Level 3.8 g/dL (3.5-5.0); Alkaline Phosphatase 72 U/L (39-117); Anion Gap 13 (12-20); Aspartate Amino Transferase 18 U/L (5-31); Bilirubin Direct 0.1 mg/dL (0.0-0.5); Bilirubin Total 0.3 mg/dL (0.0-1.0); Blood Urea Nitrogen 7 mg/dL (9-16); Calcium 9.4 mg/dL (8.4-10.2); Carbon Dioxide 17 mmol/L (22-29); Chloride 110 mmol/L (96-108); Creatinine Clr Calc Pharmacy 130.2; Estimated Glomerular Filt Rate > 60; Glucose Random 99 mg/dL (60-115); HCG Quantitative < 2 mIU/mL; Potassium 4.5 mmol/L (3.3-5.1); Sodium 135 mmol/L (135-145); Total Protein 7.6 g/dL (6.5-8.0)
[2023-07-06 17:29] VITALS: BP 123/76; PULSE 75; RESP 16; TEMP 36.6; O2SAT 99
[2023-07-06 19:40] VITALS: BP 110/79; PULSE 79; RESP 14; TEMP 36.8; O2SAT 96
[2023-07-06] MEDS: Acetaminophen 325 MG TABLET 975 MG PO (21:25)
[2023-07-06] MEDS: Cyclobenzaprine HCl 10 MG TABLET PO (21:25)
[2023-07-06] MEDS: Ketorolac Tromethamine 30 MG/ML VIAL IM (21:25)
[2023-07-06 21:31] VITALS: BP 108/81; PULSE 80; RESP 14; TEMP 37.1; O2SAT 96
== END 2023-07-06 21:32 | disposition home or self-care (01) ==
PROVIDERS: Physician Assistant Medical; Emergency Provider Emergency Medicine
DX: M54.50 Low back pain, unspecified (principal); R30.0 Dysuria; R11.2 Nausea with vomiting, unspecified; R93.49 Abnormal radiologic findings on diagnostic imaging of other urinary organs; Z79.899 Other long term (current) drug therapy
CPT/HCPCS: 36415; 80048; 80076; 81001; 84702; 85025; 86140; 96372; 99284; J1885